=== PATIENT | female | born 1960 | race Caucasian/White ===

== ENCOUNTER 2023-02-26 10:42 | Day surgery (SDC) | payer OTHER, MEDICAID, SELFPAY ==
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
[2023-02-26] MEDS: Tropicam./Phenyleph. (1/2.5%) 5 ML BTL OS ×3 (11:16→11:29)
[2023-02-26 11:36] VITALS: BMI 31.8
[2023-02-26] MEDS: Povidone-Iodine Ophth 30 ML BTL (12:31)
[2023-02-26] MEDS: Tetracaine 0.5% 4 ML BTL OS (12:31)
[2023-02-26] MEDS: Duovisc Viscoelastic System EACH 1 EACH (12:35)
[2023-02-26] MEDS: Balanced Salt Soln.-PLUS 500 ML BAG OP (12:35)
[2023-02-26] MEDS: Lidocaine 1% Pres-Free 5 ML VIAL (12:36)
[2023-02-26] MEDS: Phenylephrine/Lidocaine (15/10) MG/ML 1 ML VIAL (12:36)
--- NOTE | 2023-02-26 12:54 | W.PM.DSUDISC ---
Date of service: 02/26/23 Time of Service: 12:54 Discharge Plan Disposition Patient Disposition: Home Discharge Details Attending Provider: Tom Ramirez Primary Care Provider: Unknown,Unknown Home Meds and New Rx's Prescriptions: No Action cyclobenzaprine 10 mg Tablet 10 mg PO HS bupropion HCl 150 mg Tablet Sustained-Release 12 Hr 150 mg PO BID gabapentin 600 mg Tablet 600 mg PO BID citalopram 40 mg Tablet 40 mg PO DAILY ibuprofen 800 mg Tablet 800 mg PO BID PRN sucralfate 100 mg/mL Suspension 1 g PO QID doxepin 10 mg Capsule 10 mg PO HS aspirin 81 mg Capsule,Delayed Release(Dr/Ec) 81 mg PO DAILY lorazepam 0.5 mg Tablet 0.5 mg PO DIRECTED meclizine 25 mg Tablet 25 mg PO TID benzonatate [Tessalon Perles] 100 mg Capsule 100 mg PO Q8H PRN metformin 1,000 mg Tablet 1,000 mg PO BID esomeprazole magnesium 40 mg Capsule,Delayed Release(Dr/Ec) 40 mg PO BID folic acid 1 mg Tablet 1 mg PO DAILY montelukast 10 mg Tablet 10 mg PO DAILY albuterol sulfate [ProAir HFA] 90 mcg/actuation Hfa Aerosol Inhaler 2 puff INHALATION Q4H PRN ferrous sulfate 325 mg (65 mg iron) Capsule, Extended Release 325 mg PO DAILY insulin aspart U-100 [Novolog FlexPen U-100 Insulin] 100 unit/mL (3 mL) Insulin Pen See Rx Instructions .ROUTE .COMPLEX Rx Instructions: as directed by rosuvastatin 20 mg Tablet 20 mg PO DAILY fenofibrate 160 mg Tablet 160 mg PO DAILY budesonide-formoterol [Symbicort] 160-4.5 mcg/actuation Hfa Aerosol Inhaler 2 puff INHALATION BID insulin glargine [Lantus Solostar U-100 Insulin] 100 unit/mL (3 mL) Insulin Pen 45 unit SUBCUT DIRECTED Ozempic 2 mg/dose (8 mg/3 mL) Pen Injector 2 mg SUBCUT QWEEK Discharge Instructions Stand Alone Forms: Post-op Topical Cataract, Press Ganey (DSU) Discharge Orders Discharge Orders: Discharge Order (Routine); Ordered 02/26/23 Ordered By: Tom Ramirez DS: Diagnosis Discharge Diagnosis (1) Nuclear age-related cataract, left eye: Status: Resolved
--- NOTE | 2023-02-26 12:54 | W.PM.OP ---
Date of service: 02/26/23 Time of Service: 12:54 Operative Note Operative Note DATE OF PROCEDURE: 02/26/23 PRE-OP DIAGNOSIS: Nuclear cataract, left eye POST-OP DIAGNOSIS: same PROCEDURE: Cataract extraction using phacoemulsification with intraocular lens implant, left eye SURGEON: Tom Ramirez ANESTHESIA TYPE: Local By Surgeon and MAC Refer to Anesthesia Record PATHOLOGY: none sent COMPLICATIONS: None Patient was transported to: same day Patient's condition: stable Implants: Brock and Brock Tecnis Eyhance DIB00 Indications: Progressive decreased vision due to cataract, left eye Procedure Description: CATARACT SURGERY OPERATIVE REPORT PREOPERATIVE DIAGNOSIS: 1. Nuclear cataract, left eye POSTOPERATIVE DIAGNOSIS: Same OPERATION: 1. Cataract extraction using phacoemulsification with posterior chamber intraocular lens implant, left eye. IOL: IOL Psychiatry Physician/Model: Brock & Brock Tecnis Eyhance DIB00 IOL Power: + 22.0 diopters IOL Serial Number: [id number] Optic Diameter: 6.0 mm Haptic/Overall Diameter: 13.0 mm PHACO INFO: DamonWeaved Vision System with OZil and Active Fluidics Cumulative Dispersed Energy (CDE): 7.83 seconds SURGEON: Tom Ramirez MD, [place] ANESTHESIA: Monitored A [facility] (MAC), with local sub-tenon's anesthetic infiltration COMPLICATIONS: None SPECIMENS: None INDICATIONS FOR PROCEDURE: The patient is a 62-year-old lady with history of diminished visual acuity in her left eye secondary to the development of dense nuclear cataract. She is significantly symptomatic that she desires cataract surgery attempt to improve and maximize her vision. See office notes for detailed information. PROCEDURE: The correct surgical eye was identified and marked as the left eye and the pupil was dilated in the preoperative area using mydriatics and cycloplegics. The dilated pupil size was [] mm. Oral sedation was administered in the form of an Imprimis MKO Melt (midazolam 3mg/ketamine 25mg/ondansetron 2mg). The patient was brought to the operating room where cardiopulmonary monitoring was instituted and surgical time-out was performed, confirming the correct operative eye and IOL power. Topical anesthesia was administered and ophthalmic povidone-iodine 5% was instilled into the conjunctival fornices. The re-ocular area was prepped with Betadine 10% solution and draped in the usual sterile fashion for intraocular surgery, including an aperture drape. A Tegaderm transparent film dressing was cut in half and used to cover the lashes and lid margins. Care was taken to sequester the lashes and lid margins under the Tegaderm dressing. A lid speculum was placed between the lids of the operative eye and the Damon LuxOR Revalia operating microscope was maneuvered into position. Le scissors were then used to make a conjunctival buttonhole approximately 6mm posterior to the limbus in the inferonasal quadrant. Blunt dissection was carried out to expose bare sclera, and a blunt-tipped sub-tenon?s anesthesia cannula was introduced and passed posteriorly along the globe where non-preserved plain lidocaine was injected into posterior sub-Tenon?s space. A sideport knife was used to make a paracentesis port. Intraocular phenylephrine/lidocaine was injected into the anterior chamber.. The anterior chamber was filled with viscoelastic. A keratome knife was used to construct a 2-plane near-clear corneal tunnel extending 2.0mm into clear cornea. A flap was raised on the anterior capsule and capsulorhexis forceps were used to complete a continuous curvilinear capsulorhexis of 5.0 mm. Balanced salt solution was then used to perform cortical cleaving hydrodissection and nuclear hydrodelineation until the lens could be freely rotated within the capsular bag. The lens nucleus was then disassembled and removed within the capsular bag and iris plane using phacoemulsification. Residual cortical material was removed using the irrigation/aspiration handpiece. The posterior capsule was carefully polished to remove as much residual lens epithelial cells as safely possible. The capsular bag was then inflated and the anterior chamber deepened with viscoelastic. The lens implant described above was inserted into the capsular bag using the Brock and Brock Simplicity pre-loaded injector. A Kuglen hook was used to dial the IOL into position. Residual viscoelastic was then removed first from posterior to the IOL, then from the anterior chamber using the I/A handpiece. The lens implant was noted to center nicely within the capsular bag. The incisions were stromally hydrated, and the anterior chamber was reformed using BSS. Then 0.5cc of moxifloxacin 1.0mg/ml were injected into the capsular bag and anterior chamber. The incisions were checked with a Weck spear and found to be secure. Several drops of ophthalmic povidone-iodine 5% were then applied to the eye followed by two drops of Imprimis combination prednisolone/moxifloxacin/nepafenac solution. The drapes were removed and a clear plastic protective eye shield was placed over the eye. The patient was then returned to Same Day Surgery in stable condition.
[2023-02-26 12:55] VITALS: BP 96/59; PULSE 82; RESP 16; TEMP 36.6; O2SAT 96
--- NOTE | 2023-02-26 13:10 | W.ANESPOSTOP ---
Postoperative Evaluation Date, Time and Location Date Performed: 02/26/23 Time Performed: 13:10 Patient Location: Day Surgery Unit Vital Signs Most Recent Imported Vital Signs: Most Recent Vital Signs Temp Pulse Resp BP Pulse Ox 36.6 C 82 16 96/59 L 96 02/26/23 12:55 02/26/23 12:55 02/26/23 12:55 02/26/23 12:55 02/26/23 12:55 Pain Score Most Recent Pain Score: Most Recent Pain Score Pain Level 0 02/26/23 12:55 Assessment Mental Status: Awake (Alert & Oriented to Patient Baseline) Airway and Respiratory Function: Patent airway with normal (patient baseline) respiratory exam Cardiovascular Function: Hemodynamically Stable Hydration Status: Adequately Hydrated Nausea & Vomiting: No Nausea or Vomiting Pain: Pt. Denies Any Pain Peripheral Nerve Block: Patient did not receive a nerve block
[2023-02-26 13:24] VITALS: BP 95/60; PULSE 80; RESP 16; TEMP 36.7; O2SAT 97
== END 2023-02-26 13:32 | disposition home or self-care (01) ==
LOC: SUR 10:44
PROVIDERS: Visit Provider Ophthalmology
PROC: (CPT 66984; principal; 2023-02-26 14:30)
DX: H25.12 Age-related nuclear cataract, left eye (principal); K21.9 Gastro-esophageal reflux disease without esophagitis; I10 Essential (primary) hypertension
CPT/HCPCS: 66984; V2632

== ENCOUNTER 2023-03-12 11:24 | Day surgery (SDC) | payer OTHER, MEDICAID, SELFPAY ==
[2023-03-12 11:54] VITALS: BP 127/67; PULSE 93; RESP 20; TEMP 36.4; O2SAT 97
[2023-03-12] MEDS: Tropicam./Phenyleph. (1/2.5%) 5 ML BTL OD ×3 (11:58→12:17)
[2023-03-12 12:43] VITALS: BMI 32.5
--- NOTE | 2023-03-12 12:43 | W.ANESPRE ---
General Info Date of Service Date Performed: 03/12/23 Height: 5 ft 5 in Weight: 88.6 kg Body Mass Index (BMI): 32.5 Surgical Procedure: Operation Date: 03/12/23 15:25 Proposed Procedure Side Surgeon p Cataract Extraction with IOL Implant Right Tom Ramirez MD Actual Procedure Side Surgeon p Cataract Extraction with IOL Implant Right Tom Ramirez MD Pre-Op Diagnosis Post-Op Diagnosis right eye cataract right eye cataract Meds Allergies and Home Medications Allergies Allergy/AdvReac Type Severity Reaction Status Date / Time celecoxib [From Celebrex] Allergy Intermediate Skin Rash Unverified 03/12/23 11:59 Sulfa (Sulfonamide Allergy Intermediate Skin Rash Unverified 03/12/23 11:59 Antibiotics) Home Medication Medication Instructions Recorded albuterol sulfate 90 mcg/actuation 2 puff inhalation Q4H PRN 02/24/23 aerosol inhaler (ProAir HFA) aspirin 81 mg capsule,delayed 81 mg PO DAILY 02/24/23 release benzonatate 100 mg capsule 100 mg PO Q8H PRN 02/24/23 budesonide-formoterol HFA 160 2 puff inhalation BID 02/24/23 mcg-4.5 mcg/actuation aerosol inhaler (Symbicort) bupropion HCl 150 mg tablet,12 hr 150 mg PO BID 02/24/23 sustained-release citalopram 40 mg tablet 40 mg PO DAILY 02/24/23 cyclobenzaprine 10 mg tablet 10 mg PO HS 02/24/23 doxepin 10 mg capsule 10 mg PO HS 02/24/23 esomeprazole magnesium 40 mg 40 mg PO BID 02/24/23 capsule,delayed release fenofibrate 160 mg tablet 160 mg PO DAILY 02/24/23 ferrous sulfate 325 mg (65 mg 325 mg PO DAILY 02/24/23 iron) capsule,extended release folic acid 1 mg tablet 1 mg PO DAILY 02/24/23 gabapentin 600 mg tablet 600 mg PO BID 02/24/23 ibuprofen 800 mg tablet 800 mg PO BID PRN 02/24/23 insulin aspart U-100 100 unit/mL See Rx Instructions .Route .COMPLEX 02/24/23 (3 mL) subcutaneous pen (Novolog FlexPen U-100 Insulin aspart) insulin glargine 100 unit/mL (3 45 unit subcut DIRECTED 02/24/23 mL) subcutaneous pen (Lantus Solostar U-100 Insulin) lorazepam 0.5 mg tablet 0.5 mg PO DIRECTED 02/24/23 meclizine 25 mg tablet 25 mg PO TID 02/24/23 metformin 1,000 mg tablet 1,000 mg PO BID 02/24/23 montelukast 10 mg tablet 10 mg PO DAILY 02/24/23 rosuvastatin 20 mg tablet 20 mg PO DAILY 02/24/23 semaglutide 2 mg/dose (8 mg/3 mL) 2 mg subcut QWEEK 02/24/23 subcutaneous pen injector (Ozempic) sucralfate 100 mg/mL oral 1 g PO QID 02/24/23 suspension Current Visit Medications: Current Medications Generic Name Dose Route Start Last Admin Trade Name Freq PRN Reason Stop Dose Admin Acetaminophen 1,000 mg 03/12/23 06:00 Acetaminophen 500 Mg Tab PO 04/11/23 05:59 Q4H PRN PRN Balanced Salt Solution 500 ml 03/12/23 06:00 Balanced Salt Soln.-Plus 500 Ml Bag OP 04/11/23 05:59 DIRECTED NELI Miscellaneous Medication 0 ml 03/12/23 06:00 Prednisolone 1%, Moxifloxacin 0.5%, Nepafenac 0.1% 5ml Btl OD 04/11/23 05:59 DIRECTED NELI Miscellaneous Medication 0 ml 03/12/23 06:00 03/12/23 12:17 Tropicam./Phenyleph. (1/2.5%) 5 Ml Btl OD 04/11/23 05:59 1 drp DIRECTED NELI Administration Tetracaine HCl 0 ml 03/12/23 06:00 Tetracaine 0.5% 4 Ml Btl OD 04/11/23 05:59 DIRECTED NELI PFSH Active Problems Active Problems: Problem Status Onset Code Nuclear age-related cataract, right eye H25.11 Nuclear age-related cataract, left eye H25.12 Medical History Medical History Allergic rhinitis Backache Catheter-associated urinary tract infection Chronic frontal sinusitis Chronic ulcer of skin Depressive disorder Diabetes mellitus DJD (degenerative joint disease) DKA (diabetic ketoacidosis) DVT, lower extremity GERD (gastroesophageal reflux disease) History of pneumonia HLD (hyperlipidemia) HTN (hypertension) Insulin-treated type 2 diabetes mellitus Intertrigo Intrinsic asthma Lumbar radiculopathy Lumbar spondylolysis Mild intermittent asthma Neuropathy due to secondary diabetes RONALDO (obstructive sleep apnea) Pain of ulnar side of wrist Sepsis Urinary incontinence, mixed Venous embolism Surgical History Surgical History H/O excision of ganglion cyst History of abdominoplasty History of carpal tunnel release History of esophagogastroduodenoscopy (EGD) History of hernia repair Hx of section Hx of cholecystectomy Hx of decompression of ulnar nerve Hx of tubal ligation Tobacco Smoking/Tobacco Use Status: Former Tobacco Use Alcohol Alcohol Intake: never Substance Use Substance use: Never Substance use type: does not use Vital Signs and Lab Results Vital Signs Most Recent Vital Signs in EMR: Most Recent Vital Signs Temp Pulse Resp BP Pulse Ox 36.4 C L 93 H 20 127/67 97 03/12/23 11:54 03/12/23 11:54 03/12/23 11:54 03/12/23 11:54 03/12/23 11:54 Point of Care Results Point of Care Results: Finger Stick Blood Glucose 196 03/12/23 11:43 Lab Results Blood Type / Crossmatch: No Data to Display Complete Blood Count: No Data to Display Complete Metabolic Panel: No Data to Display Liver Function Panel: No Data to Display Coagulation Panel: No Data to Display Cardiac Panel: No Data to Display Arterial Blood Gas: No Data to Display Venous Blood Gas: No Data to Display Pancreas Panel: No Data to Display Thyroid Panel: No Data to Display Infectious Disease: No Data to Display Blood Cultures: No Data to Display Toxicology Panel: No Data to Display Anesthesia Assessment and Plan Anesthesia History Personal History: No History of Anesthesia Complications Family History: No Family History of Anesthesia Complications Exercise Tolerance Exercise Tolerance: Metabolic Equivalents>4 Pertinent Negatives Pertinent Negatives: No Symptoms of GERD Cardiac & Pulmonary Exam Cardiac Exam: Normal S1/S2 Heart Sounds Pulmonary Exam: Clear Bilateral Breath Sounds Implantable Cardiac Device Does patient have a Pacemaker or an ICD?: No Airway Exam Known Difficult Airway: No Mallampati Class: 2 Mouth Opening: Normal (> 3cm) Thyromental Distance: Greater than 3 cm Neck Range of Motion: Full ROM and Limited ROM Neck Circumference: Normal Teeth Condition: Normal Dentition and Generalized Poor Dentition ASA Classification ASA Score: ASA 3 Emergency Case?: No NPO Status NPO Status: NPO Clears >2 hours, Solids >8 hours Anesthesia Plan Resuscitation Status: Full Code Anesthesia Technique: MAC Anesthesia Airway Planned: Natural Airway Monitors Used: Standard Monitors
[2023-03-12] MEDS: Balanced Salt Soln.-PLUS 500 ML BAG OP (12:54)
[2023-03-12] MEDS: Tetracaine 0.5% 4 ML BTL OD (12:55)
[2023-03-12] MEDS: Duovisc Viscoelastic System EACH 1 EACH (12:56)
[2023-03-12] MEDS: Phenylephrine/Lidocaine (15/10) MG/ML 1 ML VIAL (12:57)
[2023-03-12] MEDS: Povidone-Iodine Ophth 30 ML BTL (12:58)
[2023-03-12 13:12] VITALS: BP 126/52; PULSE 84; RESP 18; TEMP 36.4; O2SAT 97
--- NOTE | 2023-03-12 13:13 | W.PM.OP ---
Date of service: 03/12/23 Time of Service: 13:13 Operative Note Operative Note DATE OF PROCEDURE: 03/12/23 PRE-OP DIAGNOSIS: Nuclear cataract, right eye POST-OP DIAGNOSIS: same PROCEDURE: Cataract extraction using phacoemulsification with intraocular lens implant, right eye SURGEON: Tom Ramirez ANESTHESIA TYPE: Local By Surgeon and MAC Refer to Anesthesia Record ESTIMATED BLOOD LOSS: 0 PATHOLOGY: none sent COMPLICATIONS: None Patient was transported to: same day Patient's condition: stable Implants: Brock [employer] Brock Tecnis Eyhance [id number] Indications: Progressive visual loss due to cataract, right eye Procedure Description: CATARACT SURGERY OPERATIVE REPORT PREOPERATIVE DIAGNOSIS: 1. Nuclear cataract, right eye POSTOPERATIVE DIAGNOSIS: Same OPERATION: 1. Cataract extraction using phacoemulsification with posterior chamber intraocular lens implant, right eye. IOL: IOL Concaving Machine Operator/Model: Brock [employer] Brock Tecnis Eyhance DIB00 IOL Power: + 21.5 diopters IOL Serial Number: [id number] Optic Diameter: 6.0mm Haptic/Overall Diameter: 13.0mm PHACO INFO: [employer] Glacialon Vision System with OZil and Active Fluidics Cumulative Dispersed Energy (CDE): 13.75 seconds SURGEON: Tom Ramirez MD, [place] ANESTHESIA: Monitored Anesthesia Care (MAC), with local sub-tenon's anesthetic infiltration COMPLICATIONS: None SPECIMENS: None INDICATIONS FOR PROCEDURE: The patient is a 62-year-old lady with history of diminished visual acuity in her right eye secondary to the development of nuclear cataract. She has recently undergone cataract surgery in the left eye and is doing well postoperatively. She now presents for cataract surgery in the right eye. See operative report for detailed information. PROCEDURE: The correct surgical eye was identified and marked as the right eye and the pupil was dilated in the preoperative area using mydriatics and cycloplegics. The dilated pupil size was 7.0 mm. The patient elected to proceed without oral sedation. The patient was brought to the operating room where cardiopulmonary monitoring was instituted and surgical time-out was performed, confirming the correct operative eye and IOL power. Topical anesthesia was administered and ophthalmic povidone-iodine 5% was instilled into the conjunctival fornices. The re-ocular area was prepped with Betadine 10% solution and draped in the usual sterile fashion for intraocular surgery, including an aperture drape. A Tegaderm transparent film dressing was cut in half and used to cover the lashes and lid margins. Care was taken to sequester the lashes and lid margins under the Tegaderm dressing. A lid speculum was placed between the lids of the operative eye and the Damon LuxOR Revalia operating microscope was maneuvered into position. Le scissors were then used to make a conjunctival buttonhole approximately 6mm posterior to the limbus in the inferonasal quadrant. Blunt dissection was carried out to expose bare sclera, and a blunt-tipped sub-tenon?s anesthesia cannula was introduced and passed posteriorly along the globe where non-preserved plain lidocaine was injected into posterior sub-Tenon?s space. A sideport knife was used to make a paracentesis port. Intraocular phenylephrine/lidocaine was injected into the anterior chamber. The anterior chamber was filled with viscoelastic. A keratome knife was used to construct a 2-plane clear corneal tunnel extending 2.0mm into clear cornea. A flap was raised on the anterior capsule and capsulorhexis forceps were used to complete a continuous curvilinear capsulorhexis of 5.0 mm. Balanced salt solution was then used to perform cortical cleaving hydrodissection and nuclear hydrodelineation until the lens could be freely rotated within the capsular bag. The lens nucleus was then disassembled and removed within the capsular bag and iris plane using phacoemulsification. Residual cortical material was removed using the I/A handpiece. The posterior capsule was carefully polished to remove as much residual lens epithelial cells as safely possible. The capsular bag was then inflated and the anterior chamber deepened with cohesive viscoelastic. The lens implant described above was inserted into the capsular bag using the Brock and Dawn Simplicity pre-loaded injector. A Kuglen hook was used to dial the IOL into position. Residual viscoelastic was then removed first from posterior to the IOL, then from the anterior chamber using the I/A handpiece. The lens implant was noted to center nicely within the capsular bag. The incisions were stromally hydrated, and the anterior chamber was reformed using BSS. Then 0.5cc of moxifloxacin 1.0mg/ml were injected into the capsular bag and anterior chamber. The incisions were checked with a Weck spear and found to be secure. Several drops of ophthalmic povidone-iodine 5% were then applied to the eye followed by two drops of Imprimis combination prednisolone/moxifloxacin/nepafenac solution. The drapes were removed and a clear plastic protective eye shield was placed over the eye. The patient was then returned to [facility] in stable condition.
--- NOTE | 2023-03-12 13:14 | W.PM.DSUDISC ---
Date of service: 03/12/23 Time of Service: 13:14 Discharge Plan Disposition Patient Disposition: Home Discharge Details Attending Provider: Tom Ramirez Home Meds and New Rx's Prescriptions: No Action cyclobenzaprine 10 mg Tablet 10 mg PO HS bupropion HCl 150 mg Tablet Sustained-Release 12 Hr 150 mg PO BID gabapentin 600 mg Tablet 600 mg PO BID citalopram 40 mg Tablet 40 mg PO DAILY ibuprofen 800 mg Tablet 800 mg PO BID PRN sucralfate 100 mg/mL Suspension 1 g PO QID doxepin 10 mg Capsule 10 mg PO HS aspirin 81 mg Capsule,Delayed Release(Dr/Ec) 81 mg PO DAILY lorazepam 0.5 mg Tablet 0.5 mg PO DIRECTED meclizine 25 mg Tablet 25 mg PO TID benzonatate [Tessalon Perles] 100 mg Capsule 100 mg PO Q8H PRN metformin 1,000 mg Tablet 1,000 mg PO BID esomeprazole magnesium 40 mg Capsule,Delayed Release(Dr/Ec) 40 mg PO BID folic acid 1 mg Tablet 1 mg PO DAILY montelukast 10 mg Tablet 10 mg PO DAILY albuterol sulfate [ProAir HFA] 90 mcg/actuation Hfa Aerosol Inhaler 2 puff INHALATION Q4H PRN ferrous sulfate 325 mg (65 mg iron) Capsule, Extended Release 325 mg PO DAILY insulin aspart U-100 [Novolog FlexPen U-100 Insulin] 100 unit/mL (3 mL) Insulin Pen See Rx Instructions .ROUTE .COMPLEX Rx Instructions: as directed by rosuvastatin 20 mg Tablet 20 mg PO DAILY fenofibrate 160 mg Tablet 160 mg PO DAILY budesonide-formoterol [Symbicort] 160-4.5 mcg/actuation Hfa Aerosol Inhaler 2 puff INHALATION BID insulin glargine [Lantus Solostar U-100 Insulin] 100 unit/mL (3 mL) Insulin Pen 45 unit SUBCUT DIRECTED Ozempic 2 mg/dose (8 mg/3 mL) Pen Injector 2 mg SUBCUT QWEEK Discharge Instructions Stand Alone Forms: Post-op Topical Cataract, Press Ganey (DSU) Discharge Orders Discharge Orders: Discharge Order (Routine); Ordered 03/12/23 Ordered By: Tom Ramirez DS: Diagnosis Discharge Diagnosis (1) Nuclear age-related cataract, right eye: Status: Resolved
--- NOTE | 2023-03-12 13:40 | W.ANESPOSTOP ---
Postoperative Evaluation Date, Time and Location Date Performed: 03/12/23 Time Performed: 13:20 Patient Location: Day Surgery Unit Vital Signs Most Recent Imported Vital Signs: Most Recent Vital Signs Temp Pulse Resp BP Pulse Ox 36.4 C L 84 18 126/52 L 97 03/12/23 13:12 03/12/23 13:12 03/12/23 13:12 03/12/23 13:12 03/12/23 13:12 Pain Score Most Recent Pain Score: Most Recent Pain Score Pain Level 0 03/12/23 13:12 Assessment Mental Status: Awake (Alert & Oriented to Patient Baseline) Airway and Respiratory Function: Patent airway with normal (patient baseline) respiratory exam Cardiovascular Function: Hemodynamically Stable Hydration Status: Adequately Hydrated Nausea & Vomiting: No Nausea or Vomiting Pain: Pt. Denies Any Pain Peripheral Nerve Block: Patient did not receive a nerve block
== END 2023-03-12 13:52 | disposition home or self-care (01) ==
LOC: SUR 11:24
PROVIDERS: Visit Provider Ophthalmology
PROC: (CPT 66984; principal; 2023-03-12 15:15)
DX: H25.11 Age-related nuclear cataract, right eye (principal); I10 Essential (primary) hypertension; K21.9 Gastro-esophageal reflux disease without esophagitis; Z98.42 Cataract extraction status, left eye
CPT/HCPCS: 66984; V2632